=== PATIENT | female | born 1940 | race Caucasian/White ===

== ENCOUNTER 2019-04-10 13:01 | Emergency (ER) | payer OTHER ==
--- NOTE | 2019-04-10 13:37 | ED.PDOC ---
History of Present Illness - General Chief Complaint: General Stated Complaint: pain in left lower leg Time Seen by Provider: 04/10/19 13:12 Source: patient Exam Limitations: no limitations - History of Present Illness Initial Comments: PT STATES HAS HAD 2 WEEKS OF INTERMITTENT SENSATION THAT HER LEG WAS COLD. WENT TO HER PHYSICIAN TODAY WHO SENT HER HERE TO RADIOLOGY. RADIOLOGY SENT HER TO ER FOR UNKNOWN REASON AT THIS TIME. Severity: moderate Improving Factors: nothing Worsening Factors: nothing Allergies/Adverse Reactions: Allergies NO KNOWN ALLERGY Allergy (Unverified 12/20/12 13:11) Home Medications: Ambulatory Orders Cilostazol 100 mg PO BID 04/10/19 Clopidogrel Bisulfate 75 mg PO BEDTIME 04/10/19 DULoxetine HCL [Cymbalta] 30 mg PO DAILY 04/10/19 Eszopiclone 2 mg PO BEDTIME 04/10/19 Levetiracetam 1,000 mg PO BID 04/10/19 Metoprolol Tartrate 25 mg PO BEDTIME 04/10/19 Simvastatin 40 mg PO BEDTIME 04/10/19 Tramadol HCl 50 mg PO BID 04/10/19 Warfarin Sodium 5 mg PO BEDTIME 04/10/19 Review of Systems - Review of Systems Constitutional: Denies: chills, fever EENTM: States: no symptoms reported Respiratory: States: no symptoms reported Cardiology: States: no symptoms reported Gastrointestinal/Abdominal: Denies: abdominal pain, nausea, vomiting Genitourinary: States: no symptoms reported Musculoskeletal: Denies: joint pain, joint swelling, muscle pain Skin: States: no symptoms reported, other - BOTH LEGS ARE COOL TO TOUCH Neurological: States: no symptoms reported Endocrine: States: no symptoms reported Hematologic/Lymphatic: States: no symptoms reported Past Medical History (General) - Patient Medical History Hx Stroke: No Hx Congestive Heart Failure: No Hx Diabetes: No Surgical History: tonsillectomy, Hysterectomy - Vaccination History Hx Influenza Vaccination: No Hx Pneumococcal Vaccination: No - Social History Hx Tobacco Use: Yes Family Medical History - Family History Mother Family History: Unknown Living Status: Unknown Physical Exam - Physical Exam General Appearance: Frail, No apparent distress Eye Exam: bilateral normal Ears, Nose, Throat: hearing grossly normal, other - POOR DENTITION Neck: non-tender, full range of motion, supple Respiratory: lungs clear, no respiratory distress Cardiovascular/Chest: regular rate, rhythm, no murmur, other - NO PALPABLE PULSES JOELLE. DOPPLERABLE PULSES ON R NONE ON L BUT NO PAIN CURRENTLY. Gastrointestinal/Abdominal: non tender, soft, no organomegaly Back Exam: normal inspection, no CVA tenderness Extremity: normal range of motion, other - NO C/C/E Neurologic: no motor/sensory deficits, alert Skin Exam: normal color, other - COOL TO TOUCH Lymphatic: no adenopathy Progress - Progress Progress: 04/10/19 16:33 PT RESTING COMFORTABLY, PLAYING [employer] ON PHONE. D/W DR [facility] IN [facility] WHERE PT REQUESTS TO FOLLOW UP. HE AGREES TO SEE PT SUNDAY. CONTINUE CURRENT MEDS. D/W PT, WARNINGS GIVEN FOR ACUTE OCCLUSION AND DISC WILL BE PROVIDED. SHE UNDERSTANDS AND AGREES WITH PLAN. Departure - Departure Clinical Impression: PVD (peripheral vascular disease) with claudication, Tobacco abuse HTN (hypertension) Qualifiers: Hypertension type: essential hypertension Qualified Code(s): I10 - Essential (primary) hypertension Time of Disposition: 16:36 Disposition: Discharge to Home or Self Care Condition: Fair Departure Forms: ED Discharge - Pt. Copy, Patient Portal Self Enrollment Instructions: Peripheral Artery Disease and Claudication Referrals: GUNNAR GORMAN [Primary Care Provider] - 1-2 Weeks Home Medications: Ambulatory Orders Cilostazol 100 mg PO BID 04/10/19 Clopidogrel Bisulfate 75 mg PO BEDTIME 04/10/19 DULoxetine HCL [Cymbalta] 30 mg PO DAILY 04/10/19 Eszopiclone 2 mg PO BEDTIME 04/10/19 Levetiracetam 1,000 mg PO BID 04/10/19 Metoprolol Tartrate 25 mg PO BEDTIME 04/10/19 Simvastatin 40 mg PO BEDTIME 04/10/19 Tramadol HCl 50 mg PO BID 04/10/19 Warfarin Sodium 5 mg PO BEDTIME 04/10/19
[2019-04-10 17:01] VITALS: BP 107/78; TEMP 95.1; O2SAT 96
== END 2019-04-10 17:01 | disposition home or self-care (01) ==
LOC: ER 13:01
DX: I73.9 Peripheral vascular disease, unspecified (principal); I10 Essential (primary) hypertension; F17.200 Nicotine dependence, unspecified, uncomplicated; Z79.01 Long term (current) use of anticoagulants; Z79.899 Other long term (current) drug therapy

== ENCOUNTER 2020-07-14 12:44 | Emergency (ER) | payer MEDICARE, OTHER ==
[2020-07-14] MEDS ORDERED: SODIUM CHLORIDE 0.9% 500ML 500 ML IVS ONE ×2 (12:52→14:05)
--- NOTE | 2020-07-14 12:56 | ED.PDOC ---
History of Present Illness - General Chief Complaint: General Stated Complaint: low blood pressure Time Seen by Provider: 07/14/20 12:45 Source: patient, RN notes reviewed, Vital Signs reviewed, family, old records Exam Limitations: no limitations - History of Present Illness Initial Comments: 80 yo pleasant F comes in after her home health nurse noted her blood pressure systolic was 93. Patient had just woken up when they took her bp. Has not taken her morning bp meds. States she feels fine. no chest pain, dizziness. denies black or bloody bm. Timing/Duration: 1/2 hour Allergies/Adverse Reactions: Allergies NO KNOWN ALLERGY Allergy (Unverified 12/20/12 13:11) Home Medications: Ambulatory Orders Cilostazol 100 mg PO BID 04/10/19 Clopidogrel Bisulfate 75 mg PO BEDTIME 04/10/19 DULoxetine HCL [Cymbalta] 30 mg PO DAILY 04/10/19 Eszopiclone 2 mg PO BEDTIME 04/10/19 Levetiracetam 1,000 mg PO BID 04/10/19 Metoprolol Tartrate 25 mg PO BEDTIME 04/10/19 Simvastatin 40 mg PO BEDTIME 04/10/19 Tramadol HCl 50 mg PO BID 04/10/19 Warfarin Sodium 5 mg PO BEDTIME 04/10/19 Cephalexin 500 mg PO Q8H #21 cap 07/14/20 Review of Systems - Review of Systems Constitutional: Denies: chills, fever, weakness EENTM: Denies: blurred vision, throat swelling, mouth pain Respiratory: Denies: cough, short of breath Cardiology: Denies: chest pain, palpitations Gastrointestinal/Abdominal: Denies: abdominal pain, nausea, vomiting Genitourinary: States: frequency. Denies: discharge, hematuria Musculoskeletal: Denies: back pain, muscle pain Neurological: Denies: headache, numbness, tremors, weakness Endocrine: Denies: unexplained weight gain, unexplained weight loss Hematologic/Lymphatic: Denies: easy bleeding, easy bruising Past Medical History (General) - Patient Medical History Hx Stroke: No Hx Congestive Heart Failure: No Hx Diabetes: No Hx Other - free text: anemia Surgical History: other - back surgery - Vaccination History Hx Influenza Vaccination: No Hx Pneumococcal Vaccination: No - Social History Hx Tobacco Use: Yes - Activities of Daily Living Home Health Agency (if applicable): unsure name - Female History Patient is a Female of Child Bearing Age (10 -59 yrs old): No Family Medical History - Family History Mother Family History: Unknown Living Status: Unknown Physical Exam - Physical Exam General Appearance: Alert, Comfortable, No apparent distress, Well Developed, Well Groomed, Well Hydrated, Well Nourished Eye Exam: bilateral normal Ears, Nose, Throat: hearing grossly normal Neck: non-tender, full range of motion, supple, normal inspection Respiratory: chest non-tender, lungs clear, normal breath sounds, no respiratory distress, no accessory muscle use Cardiovascular/Chest: normal peripheral pulses, regular rate, rhythm, no edema, no gallop, no JVD, no murmur Peripheral Pulses: radial,right: 2+, radial,left: 2+ Gastrointestinal/Abdominal: normal bowel sounds, non tender, soft, no organomegaly, no pulsatile mass Rectal Exam: deferred Back Exam: normal inspection, no CVA tenderness Extremity: other - left BKA 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 no change in HR, most likely due to bb. will give 500 ml bolus. VSS stable. BP stable at 108 systolic. Urine shows UTI. Given one gram ceftriaxone here. CrCL 39 due to age, weight. lactic acid wnl. no evidence of sepsis. afebrile. Will give renal dose keflex,pending urine cultures. 07/14/20 15:35 The data reviewed when caring for this patient included: nurse notes, prior records, etc. The history and assessments from nurses notes were reviewed and considered, and the patient's home medication list was also reviewed and considered. My assessment and the results of testing completed here in the ED were discussed with the patient/family. All questions were answered, and they express understanding of my assessment and the plan. They have been instructed to return if their symptoms worsen, and have been asked to follow up with their primary care physician to recheck today's presenting complaint. Strict return precautions given. I have reviewed medication, benefits, alternatives and side effects. Patient decided to proceed with medication. Chantell Tijerina DO #[id number] 07/14/20 15:39 - Results/Orders Results/Orders: 07/14/20 14:30 URINE CULTURE W/COLONY COUNT Stat 07/14/20 15:33 Discharge Stat Laboratory Results WBC 5.8 K/mm3 (4.8-10.8) 07/14/20 13:30 RBC 4.60 M/mm3 (4.20-5.40) 07/14/20 13:30 Hgb 10.5 gm/dL (12.0-16.0) L 07/14/20 13:30 Hct 33.6 % (36.0-47.0) L 07/14/20 13:30 MCV 73.1 fl (81.0-99.0) L 07/14/20 13:30 MCH 22.8 pg (27.0-31.0) L 07/14/20 13:30 MCHC 31.2 g/dL (33.0-37.0) L 07/14/20 13:30 RDW 18.4 % (11.5-14.5) H 07/14/20 13:30 Plt Count 452 K/mm3 (130-400) H 07/14/20 13:30 MPV 7.0 fl (7.40-10.4) L 07/14/20 13:30 Absolute Neuts (auto) 3.70 K/uL (1.8-6.8) 07/14/20 13:30 Absolute Lymphs (auto) 1.40 K/uL (1.0-3.4) 07/14/20 13:30 Absolute Monos (auto) 0.50 K/uL (0.2-0.8) 07/14/20 13:30 Absolute Eos (auto) 0.20 K/uL (0.0-0.4) 07/14/20 13:30 Absolute Basos (auto) 0.00 K/uL (0.0-0.1) 07/14/20 13:30 Neutrophils % 63.9 % (42.0-78.0) 07/14/20 13:30 Lymphocytes % 23.8 % (20.0-50.0) 07/14/20 13:30 Monocytes % 8.8 % (2.0-9.0) 07/14/20 13:30 Eosinophils % 2.9 % (1.0-5.0) 07/14/20 13:30 Basophils % 0.6 % (0.0-2.0) 07/14/20 13:30 Normal RBC Morphology 2+hypochromia 2+microcytosis 1+aniso 1+ovalocytes Plts desire increased Stain quality accept 07/14/20 13:30 Normal RBC Morphology 2+hypochromia 2+microcytosis 1+aniso 1+ovalocytes Plts desire increased Stain quality accept 07/14/20 13:30 Normal RBC Morphology 2+hypochromia 2+microcytosis 1+aniso 1+ovalocytes Plts desire increased Stain quality accept 07/14/20 13:30 Normal RBC Morphology 2+hypochromia 2+microcytosis 1+aniso 1+ovalocytes Plts desire increased Stain quality accept 07/14/20 13:30 Normal RBC Morphology 2+hypochromia 2+microcytosis 1+aniso 1+ovalocytes Plts desire increased Stain quality accept 07/14/20 13:30 Normal RBC Morphology 2+hypochromia 2+microcytosis 1+aniso 1+ovalocytes Plts desire increased Stain quality accept 07/14/20 13:30 Sodium 139 mmol/L (135-145) 07/14/20 13:30 Potassium 4.3 mmol/L (3.6-5.0) 07/14/20 13:30 Chloride 109 mmol/L (101-111) 07/14/20 13:30 Carbon Dioxide 22 mmol/L (21-31) 07/14/20 13:30 Anion Gap 12.3 (12-18) 07/14/20 13:30 BUN 17 mg/dL (7-18) 07/14/20 13:30 Creatinine 0.89 mg/dL (0.6-1.3) 07/14/20 13:30 BUN/Creatinine Ratio 19.1 (10-20) 07/14/20 13:30 Random Glucose 89 mg/dL (70-105) 07/14/20 13:30 Serum Osmolality 278.6 mOsm/L (275-295) 07/14/20 13:30 Lactic Acid 0.9 mmol/L (0.5-2.2) 07/14/20 15:09 Calcium 8.7 mg/dL (8.4-10.2) 07/14/20 13:30 Total Bilirubin 0.5 mg/dL (0.2-1.0) 07/14/20 13:30 AST 15 IU/L (10-42) 07/14/20 13:30 ALT 10 IU/L (10-60) 07/14/20 13:30 Alkaline Phosphatase 83 IU/L (42-121) 07/14/20 13:30 Serum Total Protein 6.9 gm/dL (6.4-8.2) 07/14/20 13:30 Albumin 3.1 g/dl (3.2-5.5) L 07/14/20 13:30 Globulin 3.8 gm/dL (2.3-3.5) H 07/14/20 13:30 Albumin/Globulin Ratio 0.8 (1.1-1.9) L 07/14/20 13:30 Urine Color Yellow (Yellow) 07/14/20 14:30 Urine Appearance Cloudy (Clear) 07/14/20 14:30 Urine pH 8.5 (4.5-7.8) H 07/14/20 14:30 Ur Specific [place] 1.020 (1.005-1.030) 07/14/20 14:30 Urine Protein 30 mg/dL 07/14/20 14:30 Urine Glucose (UA) Negative mg/dL (Negative) 07/14/20 14:30 Urine Ketones Negative mg/dL (NEGATIVE) 07/14/20 14:30 Urine Blood Trace-intact (Negative) H 07/14/20 14:30 Urine Nitrite Positive H 07/14/20 14:30 Urine Bilirubin Negative (NEGATIVE) 07/14/20 14:30 Urine Urobilinogen 1.0 mg/dL (0.2-1.0) 07/14/20 14:30 Ur Leukocyte Esterase Large (Negative) H 07/14/20 14:30 Urine RBC 0-1 /hpf 07/14/20 14:30 Urine WBC Tntc /hpf H 07/14/20 14:30 Ur Epithelial Cells 1-3 /hpf 07/14/20 14:30 Urine Bacteria 4+ H 07/14/20 14:30 Departure - Departure Clinical Impression: Dehydration UTI (urinary tract infection) Qualifiers: Urinary tract infection type: acute cystitis Hematuria presence: without hematuria Qualified Code(s): N30.00 - Acute cystitis without hematuria Time of Disposition: 15:30 Disposition: Discharge to Home or Self Care Condition: Good Departure Forms: ED Discharge - Pt. Copy, Patient Portal Self Enrollment Instructions: Urinary Tract Infections in Adults, Dehydration, Adult (DC), Orthostatic Hypotension (DC), Low Blood Pressure (DC), Why Water Is Important to Health Referrals: GUNNAR GORMAN [Primary Care Provider] - 1-2 Days Prescriptions: Cephalexin 500 mg PO Q8H #21 cap Home Medications: Ambulatory Orders Cilostazol 100 mg PO BID 04/10/19 Clopidogrel Bisulfate 75 mg PO BEDTIME 04/10/19 DULoxetine HCL [Cymbalta] 30 mg PO DAILY 04/10/19 Eszopiclone 2 mg PO BEDTIME 04/10/19 Levetiracetam 1,000 mg PO BID 04/10/19 Metoprolol Tartrate 25 mg PO BEDTIME 04/10/19 Simvastatin 40 mg PO BEDTIME 04/10/19 Tramadol HCl 50 mg PO BID 04/10/19 Warfarin Sodium 5 mg PO BEDTIME 04/10/19 Cephalexin 500 mg PO Q8H #21 cap 07/14/20 Additional Instructions: Hold on blood pressure medications, including metoprolol until follow up with your primary care doctor. .
[2020-07-14] MEDS ORDERED: cefTRIAXone SODIUM 1 GM in SODIUM CHL 0.9% 50ML MIN-BAG+ 50 ML IVPB ONE (14:52)
[2020-07-14 15:48] VITALS: BP 111/61; TEMP 97.7; O2SAT 97
== END 2020-07-14 15:40 | disposition home or self-care (01) ==
LOC: ER 12:44
DX: N30.00 Acute cystitis without hematuria (principal); E86.0 Dehydration; Z79.02 Long term (current) use of antithrombotics/antiplatelets; Z79.01 Long term (current) use of anticoagulants; Z79.899 Other long term (current) drug therapy; F17.200 Nicotine dependence, unspecified, uncomplicated
CPT/HCPCS: 36415; 80053; 81001; 83605; 85025; 87086; J0696; J7040; J7050

== ENCOUNTER → 2020-08-13 | Outpatient (CLI) | payer MEDICARE | LOC: LAB.NP 13:01 | PROVIDERS: ATTEND Emergency Medicine | DX: I10 Essential (primary) hypertension (principal); N39.0 Urinary tract infection, site not specified ==

== ENCOUNTER 2020-08-20 17:11 | Emergency (ER) | payer MEDICARE, OTHER ==
--- NOTE | 2020-08-20 18:27 | ED.PDOC ---
History of Present Illness - General Chief Complaint: General Stated Complaint: asympyomatic, exposed to covid Time Seen by Provider: 08/20/20 17:22 Source: patient Exam Limitations: no limitations - History of Present Illness Initial Comments: It appears the patient is a 80-year-old female presented to the emergency room secondary to her home health nurse wanting her to be tested for coronavirus secondary to apparently a recent exposure. The patient is asymptomatic according to her. No nausea vomiting or diarrhea. No cough sore throat runny nose or shortness of breath. Reports that she feels fine. Apparently exposure would have been at the early part of this week and next. She reports that she did wear a mask when she was out of the house. Timing/Duration: unsure Severity: mild Improving Factors: nothing Allergies/Adverse Reactions: Allergies NO KNOWN ALLERGY Allergy (Unverified 08/20/20 17:41) Home Medications: Ambulatory Orders Cilostazol 100 mg PO BID 04/10/19 Clopidogrel Bisulfate 75 mg PO BEDTIME 04/10/19 DULoxetine HCL [Cymbalta] 30 mg PO DAILY 04/10/19 Eszopiclone 2 mg PO BEDTIME 04/10/19 Levetiracetam 1,000 mg PO BID 04/10/19 Metoprolol Tartrate 25 mg PO BEDTIME 04/10/19 Simvastatin 40 mg PO BEDTIME 04/10/19 Tramadol HCl 50 mg PO BID 04/10/19 Warfarin Sodium 5 mg PO BEDTIME 04/10/19 Cephalexin 500 mg PO Q8H #21 cap 07/14/20 Review of Systems - Review of Systems Constitutional: States: no symptoms reported EENTM: States: no symptoms reported Respiratory: States: no symptoms reported Cardiology: States: no symptoms reported Gastrointestinal/Abdominal: States: no symptoms reported Genitourinary: States: no symptoms reported Musculoskeletal: States: no symptoms reported Skin: States: no symptoms reported Neurological: States: no symptoms reported Endocrine: States: no symptoms reported All other Systems: No Change from Baseline Past Medical History (General) - Patient Medical History Hx Seizures: No Hx Stroke: No Hx Dementia: No Hx Asthma: Yes Hx of COPD: Yes Hx Cardiac Disorders: No Hx Congestive Heart Failure: No Hx Pacemaker: No Hx Hypertension: No Hx Thyroid Disease: No Hx Diabetes: No Hx Gastroesophageal Reflux: No Hx Renal Disease: No Hx Cancer: No Hx of HIV: No Hx Hepatitis C: No Hx MRSA: No Surgical History: tonsillectomy, Hysterectomy - Vaccination History Hx Tetanus, Diphtheria Vaccination: No Hx Influenza Vaccination: No Hx Pneumococcal Vaccination: No - Social History Hx Tobacco Use: Yes - Female History Patient is a Female of Child Bearing Age (10 -59 yrs old): No Family Medical History - Family History Mother Family History: Unknown Living Status: Unknown Physical Exam - Physical Exam General Appearance: Alert, Comfortable, No apparent distress Eye Exam: bilateral normal Ears, Nose, Throat: hearing grossly normal, normal ENT inspection, normal pharynx Neck: full range of motion, supple Respiratory: lungs clear, normal breath sounds, no respiratory distress, no accessory muscle use Cardiovascular/Chest: normal peripheral pulses, regular rate, rhythm, no edema Peripheral Pulses: radial,right: 2+, radial,left: 2+ Gastrointestinal/Abdominal: non tender, soft Rectal Exam: deferred Back Exam: no CVA tenderness, no vertebral tenderness Extremity: normal range of motion, non-tender, normal inspection, no pedal edema, no calf tenderness, normal capillary refill, other - Chronic left lower extremity amputation. 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 As best we can determine the patient is largely asymptomatic. She did test negative here today. Keep routine follow-up with primary care doctor. lulu rangel [id number] - EKG/XRAY/CT CT Ordered: No CT Interpretation Call Back: No Departure - Departure Clinical Impression: Exposure to 2019 novel coronavirus Disposition: Discharge to Home or Self Care Condition: Fair Departure Forms: ED Discharge - Pt. Copy, Patient Portal Self Enrollment Diet: regular diet Activity: increase activity as tolerated Referrals: GUNNAR GORMAN [Primary Care Provider] - 1-2 Weeks Home Medications: Ambulatory Orders Cilostazol 100 mg PO BID 07/18/19 Clopidogrel Bisulfate 75 mg PO BEDTIME 04/10/19 DULoxetine HCL [Cymbalta] 30 mg PO DAILY 04/10/19 Eszopiclone 2 mg PO BEDTIME 04/10/19 Levetiracetam 1,000 mg PO BID 04/10/19 Metoprolol Tartrate 25 mg PO BEDTIME 04/10/19 Simvastatin 40 mg PO BEDTIME 04/10/19 Tramadol HCl 50 mg PO BID 04/10/19 Warfarin Sodium 5 mg PO BEDTIME 04/10/19 Cephalexin 500 mg PO Q8H #21 cap 07/14/20 Additional Instructions: The patient is a 80-year-old female sent to the emergency room for coronavirus testing apparently secondary to concern for exposing her healthcare providers that stay with her. As best we can determine the patient is largely asymptomatic. She did test negative here today. Keep routine follow-up with primary care doctor.
[2020-08-20 18:40] VITALS: BP 178/95; TEMP 97.4; O2SAT 99
== END 2020-08-20 18:30 | disposition home or self-care (01) ==
LOC: ER 17:11
DX: Z20.828 Contact with and (suspected) exposure to other viral communicable diseases (principal); J44.9 Chronic obstructive pulmonary disease, unspecified; Z87.891 Personal history of nicotine dependence; Z79.01 Long term (current) use of anticoagulants; Z79.899 Other long term (current) drug therapy

== ENCOUNTER 2020-09-13 13:15 | Emergency (ER) | payer MEDICARE, OTHER ==
--- NOTE | 2020-09-13 13:36 | ED.PDOC ---
History of Present Illness - General Chief Complaint: General Stated Complaint: left leg phantom limb pain Time Seen by Provider: 09/13/20 13:35 Source: patient - History of Present Illness Initial Comments: Patient seen upon ED arrival, at bedside at 1335. 80-year-old female with past medical history of hypertension, chronic smoker, peripheral vascular disease, status post left AKA (2018) who presents with chief complaint of right foot pain. Patient is very poor historian. She is accompanied by her daughter at bedside who lives with the patient but also provides very little meaningful history. The patient stated to nursing staff that she was having phantom pain in her left lower extremity. However she reports to me that she has been having pain in the right foot for several days now. She reports that she fell and injured the right foot but is unsure when this occurred, possibly several days ago but not sure. She reports pain for the past 2 to 3 days of the right foot, constant, 6/10 severity, radiates from the toes into the rest of foot, no known exacerbating factors, reports has been taking [id number] medications without relief. She reports she was previously prescribed tramadol for pain but has run out of this. She also has Cymbalta listed on her medication list but she is unsure if she is taking this. Pt has chronic decreased sensation in the R foot which is unchanged. She reports some bruising to the top of the R foot since the fall but no other color changes noted. No coldness to R foot. Patient does have history of severe peripheral vascular disease and continues to smoke at least 1 pack/day cigarettes. She underwent left AKA surgery recently in [place]. Daughter and patient were not aware that smoking increases her risk of peripheral vascular disease complications. PCP is Dr. Merrill, last visit was 1 month ago, scheduled for f/u with him next month. Allergies/Adverse Reactions: Allergies NO KNOWN ALLERGY Allergy (Unverified 08/20/20 17:41) Home Medications: Ambulatory Orders Cilostazol 100 mg PO BID 04/10/19 Clopidogrel Bisulfate 75 mg PO BEDTIME 04/10/19 DULoxetine HCL [Cymbalta] 30 mg PO DAILY 04/10/19 Eszopiclone 2 mg PO BEDTIME 04/10/19 Levetiracetam 1,000 mg PO BID 04/10/19 Metoprolol Tartrate 25 mg PO BEDTIME 04/10/19 Simvastatin 40 mg PO BEDTIME 04/10/19 Tramadol HCl 50 mg PO BID 04/10/19 Warfarin Sodium 5 mg PO BEDTIME 04/10/19 Cephalexin 500 mg PO Q8H #21 cap 07/14/20 Tramadol HCl 50 mg PO Q6H PRN 10 Days #15 tab 09/13/20 Review of Systems - Review of Systems Review of Systems: 09/13/20 13:54 as per HPI All other Systems: Reviewed and Negative Past Medical History (General) - Patient Medical History Hx Seizures: No Hx Stroke: No Hx Dementia: No Hx Asthma: Yes Hx of COPD: Yes Hx Cardiac Disorders: No Hx Congestive Heart Failure: No Hx Pacemaker: No Hx Hypertension: No Hx Thyroid Disease: No Hx Diabetes: No Hx Gastroesophageal Reflux: No Hx Renal Disease: No Hx Cancer: No Hx of HIV: No Hx Hepatitis C: No Hx MRSA: No - Vaccination History Hx Tetanus, Diphtheria Vaccination: No Hx Influenza Vaccination: No Hx Pneumococcal Vaccination: No - Social History Hx Tobacco Use: Yes Family Medical History - Family History Mother Family History: Unknown Living Status: Unknown Physical Exam - Physical Exam General Appearance: Alert, Comfortable, No apparent distress Eye Exam: bilateral normal Ears, Nose, Throat: hearing grossly normal, normal ENT inspection Neck: non-tender, full range of motion Respiratory: lungs clear, normal breath sounds, no respiratory distress Cardiovascular/Chest: regular rate, rhythm, no edema, no gallop, no JVD, no murmur Peripheral Pulses: radial,right: 2+, radial,left: 2+, dorsalis pedis,right: 1+, posterior tibialis,right: 1+ - faint palpable R DP & PT pulses, good cap refill noted throughout Gastrointestinal/Abdominal: non tender, soft Extremity: normal range of motion, other - R foot with moderate dorsal bruising noted w/o deformity or swelling, slightly warm to touch and good pink color, good cap refill throughout 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 No emergent etiologies such as acute lower extremity ischemia appear likely. -pt stable, NAD -obtain XR imaging R foot -Tramadol 50 mg PO for pain 09/13/20 14:40 -X-ray imaging of the right foot revealed no acute fractures. Chronic findings of arthritic changes were noted. -Patient reported improved pain with tramadol in the ED. She has remained stable. Discussed x-ray findings as well as diagnosis of contusion injury of the right foot. Advised that she will need to follow-up closely with her PCP for further outpatient evaluation and management of her peripheral vascular disease. I strongly advised her to quit smoking. -Refill of tramadol as needed prescription given -Discharged home in good condition, return warnings discussed at length. Bruce Louis MD Billing #[id number] Departure - Departure Clinical Impression: Contusion of right foot, initial encounter, PVD (peripheral vascular disease) Peripheral neuropathy Qualifiers: Peripheral neuropathy type: polyneuropathy associated with underlying disease Qualified Code(s): G63 - Polyneuropathy in diseases classified elsewhere Time of Disposition: 14:36 Disposition: Discharge to Home or Self Care Condition: Good Departure Forms: ED Discharge - Pt. Copy, Patient Portal Self Enrollment Instructions: Peripheral Vascular (Arterial) Disease (DC), Contusion (DC), Peripheral Neuropathy (DC) Diet: low fat, low cholesterol Activity: increase activity as tolerated Referrals: GUNNAR MERRILL [Primary Care Provider] - 1-2 Weeks Prescriptions: Tramadol HCl 50 mg PO Q6H PRN 10 Days #15 tab PRN Reason: Pain Home Medications: Ambulatory Orders Cilostazol 100 mg PO BID 04/10/19 Clopidogrel Bisulfate 75 mg PO BEDTIME 04/10/19 DULoxetine HCL [Cymbalta] 30 mg PO DAILY 04/10/19 Eszopiclone 2 mg PO BEDTIME 04/10/19 Levetiracetam 1,000 mg PO BID 04/10/19 Metoprolol Tartrate 25 mg PO BEDTIME 04/10/19 Simvastatin 40 mg PO BEDTIME 04/10/19 Tramadol HCl 50 mg PO BID 04/10/19 Warfarin Sodium 5 mg PO BEDTIME 04/10/19 Cephalexin 500 mg PO Q8H #21 cap 07/14/20 Tramadol HCl 50 mg PO Q6H PRN 10 Days #15 tab 09/13/20 Additional Instructions: As discussed it is strongly advised that you quit smoking which greatly increases your risk of complications from peripheral vascular disease which may include acute ischemia of your right leg and possible need for amputation. Continue to take [id number] medications as needed for pain such as Tylenol 650 mg every 6 hours as needed and ibuprofen. You may take the tramadol as directed for breakthrough pain but do not drive or operate heavy machinery when taking this medication. Follow-up closely with your PCP as recommended. Return to the ED if you develop worsening pain in the right foot or other concerning symptoms such as blue or purple or black discoloration of the right foot, worsening coldness of the right foot, loss of sensation in the right foot, etc.
[2020-09-13] MEDS ORDERED: traMADol HCL 50 MG TAB PO ONE (13:47)
--- NOTE | 2020-09-13 14:11 | RAD ---
EXAM DESCRIPTION: Foot,Right 3 Views CLINICAL HISTORY: 80 years, Female, GLF several days ago, R foot pain COMPARISON: None TECHNIQUE: AP, lateral, and oblique views of the right foot FINDINGS: Degenerative spurring at the anterior right ankle joint and at the neck of the talus. Minimal degenerative spurring at the dorsal and plantar aspects of calcaneus. Talus and calcaneus appear intact. No midfoot malalignment. Frontal view shows osteopenic or osteoporotic appearance of the bones. Degenerative narrowing of the first metatarsal phalangeal joint. Degenerative narrowing of the joints of the toes. Deformity of the distal fifth metatarsal consistent with old healed fracture. No acute fracture. No midfoot malalignment. IMPRESSION: Negative for fracture. Electronically signed by: Tj Nazario MD 09/13/2020 2:09 PM [facility]
[2020-09-13 14:48] VITALS: BP 165/90; TEMP 96.2; O2SAT 95
== END 2020-09-13 14:48 | disposition home or self-care (01) ==
LOC: ER 13:15
DX: S90.31XA Contusion of right foot, initial encounter (principal); I73.9 Peripheral vascular disease, unspecified; G63 Polyneuropathy in diseases classified elsewhere; I10 Essential (primary) hypertension; J44.9 Chronic obstructive pulmonary disease, unspecified; F17.210 Nicotine dependence, cigarettes, uncomplicated; Z89.612 Acquired absence of left leg above knee; Z79.899 Other long term (current) drug therapy; W19.XXXA Unspecified fall, initial encounter; Y92.9 Unspecified place or not applicable